=== PATIENT | male | born 2000 | race Two or more races ===

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

== ENCOUNTER 2019-01-23 22:57 | Emergency (ER) | payer SELFPAY ==
[~2019-01-23] VITALS: Ht 172.7 cm; Wt 68.0 kg
[2019-01-23] MEDS ORDERED: ONDANSETRON ODT 4 MG TAB PO ONE (23:15)
[2019-01-23 23:19] VITALS: BP 103/62
== END 2019-01-24 02:53 | disposition left against medical advice (07) ==
LOC: ER 22:57
DX: R10.10 Upper abdominal pain, unspecified (principal); R11.2 Nausea with vomiting, unspecified; R50.9 Fever, unspecified; Z53.21 Procedure and treatment not carried out due to patient leaving prior to being seen by health care provider
CPT/HCPCS: Q0162